=== PATIENT | male | born 2000 | race Hispanic/Latino ===

== ENCOUNTER 2021-03-27 14:52 | Emergency (ER) | payer SELFPAY ==
[~2021-03-27] VITALS: Ht 185.4 cm; Wt 136.1 kg
== END 2021-03-27 17:04 | disposition home or self-care (01) ==
LOC: ER 16:32
DX: R50.9 Fever, unspecified (principal); S39.012A Strain of muscle, fascia and tendon of lower back, initial encounter; V43.52XA Car driver injured in collision with other type car in traffic accident, initial encounter; Y92.488 Other paved roadways as the place of occurrence of the external cause
CPT/HCPCS: 99282